=== PATIENT | female | born 1990 | race Caucasian/White ===

== ENCOUNTER 2018-05-02 | Emergency (ER) | payer BC ==
[~2018-05-02] VITALS: Ht 167.6 cm; Wt 81.4 kg
[2018-05-02] MEDS ORDERED: PROAIR HFA0.09 MG/AC IH (00:19)
[2018-05-02] MEDS ORDERED: INDERAL 10MG10 MG PO (00:19)
[2018-05-02] MEDS ORDERED: NORCO 325 MG-51 TA1 PO (01:01)
[2018-05-02 01:14] VITALS: BP 101/71
== END 2018-05-02 01:14 | disposition home or self-care (01) ==
LOC: ED
DX: M54.5 Low back pain (principal); M54.16 Radiculopathy, lumbar region; F41.9 Anxiety disorder, unspecified; D64.9 Anemia, unspecified
CPT/HCPCS: J1885

== ENCOUNTER 2018-07-25 18:04 | Emergency (ER) | payer BC ==
[~2018-07-25] VITALS: Ht 167.6 cm; Wt 84.1 kg
[~2018-07-25 18:04] MED LIST: INDERAL 10MG10 MG PO; NORCO 325 MG-51 TA1 PO; PROAIR HFA0.09 MG/AC IH
[2018-07-25] MEDS ORDERED: KETOROLAC10 MG PO (18:46)
[2018-07-25] MEDS ORDERED: NORCO 325 MG-51 TA1 PO (18:46)
[2018-07-25 18:59] VITALS: BP 106/71
== END 2018-07-25 18:59 | disposition home or self-care (01) ==
LOC: ED 18:04
DX: M54.42 Lumbago with sciatica, left side (principal); Z98.890 Other specified postprocedural states
CPT/HCPCS: J1885

== ENCOUNTER → 2018-08-18 | Outpatient (CLI) | payer BC ==
[2018-07-25 18:59] VITALS: BP 106/71
[~2018-08-18] MED LIST changes: +KETOROLAC10 MG PO
== END ==
LOC: RAD 09:10
DX: M54.16 Radiculopathy, lumbar region (principal)

== ENCOUNTER 2018-11-08 00:12 | Emergency (ER) | payer BC ==
[~2018-11-08] VITALS: Ht 167.6 cm; Wt 92.3 kg
[2018-11-08] MEDS ORDERED: DESYREL50 MG PO (00:24)
[2018-11-08] MEDS ORDERED: NAPROXEN500 MG PO (00:24)
[2018-11-08] MEDS ORDERED: VRAYLAR3 MG PO (00:24)
[2018-11-08] MEDS ORDERED: NEURONTIN300 MG/CAP PO (00:24)
[2018-11-08] MEDS ORDERED: TRAMADOL 50 MG TAB PO ×2 (00:25→01:01)
[2018-11-08] MEDS ORDERED: SPRINTEC 35 MCG1 TAB PO (00:26)
[2018-11-08] MEDS ORDERED: HYDROXYZINE HCL25 M1 PO (00:26)
[2018-11-08 01:30] VITALS: BP 103/57
== END 2018-11-08 01:28 | disposition home or self-care (01) ==
LOC: ED 00:12
DX: M54.5 Low back pain (principal); F41.9 Anxiety disorder, unspecified; Z98.890 Other specified postprocedural states